=== PATIENT | male | born 1960 | race Hispanic/Latino ===

== ENCOUNTER 2022-03-04 09:53 | Observation (INO) | payer OTHER ==
--- OUTSIDE RECORDS SUMMARY | 2022-03-04 09:56 | XMS REPORT | Continuity of Care Document ---
:1960 Author Organization [facility] t Address [address] [place] [address] Care Team Providers Name Role Phone DAINA WOODS Primary Care Physician Unavailable KERRI SILVA Attending Clinician Unavailable HARJIT FLOYD Attending Clinician Unavailable Pob, [facility] Main Attending Clinician Unavailable Harjit Floyd MD Attending Clinician Doctor Unassigned, [place] Attending Clinician Unavailable DAINA WOODS Attending Clinician Unavailable DAINA WOODS Admitting Clinician Unavailable Payers Payer Name Policy Type Policy Number Effective Date Expiration Date S ource INDEMNITY/TRADITI [id number] [place] CHOICE - [employer] EN[employer]UST [id number] 2019 00:00:00 Problems Condition Condition Condition Status Onset Resolution Last Treating Co mments Source Name Details Category Date Date Treatment Clinician Date Overweight Overweight Disease Active U brandie (BMI (BMI 9-11 ity of 25.0-29.9) 25.0-29.9[place] [facility] Cardiac Cardiac Disease Active Univers risk risk 12-31 it[place] of [place] [facility] Dizzy Dizzy Disease Active Univers spells spells 11 ity of 00:: [place] [facility] Essential Essential Disease Active Uni vers hypertensi hypertensi 12-31 it y of on on 00:: [place] [facility] Dyslipidem Dyslipidem Disease Active U brandie ia ia - ity of 00:00: [place] [facility] Allergies, Adverse Reactions, Alerts Allergy Allergy Status Severity Reaction(s) Onset Inactive Treating Comm ents Source Name Type Date Date Clinician NO KNOWN Drug Active Univers ALLERGIE Class ity of S [facility] Social History Social Habit Start Date Stop Date Quantity Comments Source Exposure to Not sure [facility] SARS-CoV-2 [facility] (event) [place] Alcohol Comment 1-2 every 2-3 Univer sity of weeks [facility] Sex Assigned At Universit y of [facility] Alcohol intake 2014-12-31 2014-12-31 Current drinker Unive rsity of 00:00:00 00:00:00 of alcohol [place] [facility] (finding) Branch Smoking Status Start Date Stop Date Source Never smoker [facility] Medications Ordered Filled Start Stop Current Ordering Indication Dosage Frequency Signature Comments Components Source Medication Medication Date Date Medication? Clinician (SIG) Name Name traMADOL Yes 50mg Take 1 Univers (ULTRAM) 50 1-26 tablet by ity of mg tablet 00:00: mouth [place] 00 every 6 Medical (six) Branch hours as needed for Pain (scale 4-6). naproxen 2017- Yes 250mg Take 1 Univer s 250 mg 1-26 tablet by ity of tablet 00:00: mouth 2 00 (two) Medical times Branch daily with meals. traMADOL Yes 50mg Take 1 Univers (ULTRAM) 50 1-26 tablet by ity of mg tablet 00:00: mouth [place] 00 every 6 Medical (six) Branch hours as needed for Pain (scale 4-6). naproxen 2018- Yes 250mg Take 1 Univer s 250 mg 1-26 tablet by ity of tablet 00:00: mouth 2 [place] (two) Medical times Branch daily with meals. lisinopril Yes 10mg Take 10 mg U nivers (PRINIVIL,Z 9-11 by mouth ity of ESTRIL) 10 14:46: daily. [place] mg tablet 32 Medical Branch atorvastati Yes 10mg Take 10 mg Univers n (LIPITOR) 9-11 by mouth ity of 10 mg 14:46: at [place] tablet 32 bedtime. Medical Branch lisinopril Yes 10mg Take 10 mg U nivers (PRINIVIL,Z 9-11 by mouth ity of ESTRIL) 10 14:46: daily. [place] mg tablet 32 Medical Branch atorvastati Yes 10mg Take 10 mg Univers n (LIPITOR) 9-11 by mouth ity of 10 mg 14:46: at [place] tablet 32 bedtime. [facility] BIMATOPROST Yes 1[drp] Place 1 U nivers (LUMIGAN 9-11 Drop in ity of OPHTHALMIC) 14:12: each eye [place] 31 daily. [facility] BIMATOPROST Yes 1[drp] Place 1 U nivers (LUMIGAN 9-11 Drop in ity of OPHTHALMIC) 14:12: [place] eye [place] 31 daily. [facility] Procedures Procedure Date / Time Performed Performing Clinician [facility] e DASILVA VISUAL FIELD 2021-12-29 15:14:13 [facility] - BOTH EYES Medicine ASSIGNMENT OF BENEFITS 2020-04-18 15:46:58 Doctor Unassigned, No University [facility] Encounters Start End Encounter Admission Attending Care Care Encounter Source Date/Time Date/Time Type Type Clinicians Facility Department ID 2021-12-29 2021-12-29 Outpatient KERRI SILVA [facility] [id number] [facility] 14:25:27 16:31:03 [facility] 2021-04-26 2021-04-26 Outpatient KERRI SILVA [facility] [id number] [facility] 08:06:35 10:06:24 [facility] Medic[facility] e 2020-04-18 2020-04-18 Outpatient Devora FLOYD [facility] [id number] Univers 10:30:00 10:30:00 HARJIT [facility] 2020-04-18 2020-04-18 Therapy Assistant Ramesh Sepulveda Lab Main RUST [id number] Univers 09:47:56 10:02:56 Visit Harjit Floyd [id number] ity of [place] [id number] Camryn Mujica [id number] [place] [address] 2020-04-18 2020-04-18 Orders Doctor LUIS CARLOS [id number] Univers 00:00:00 00:00:00 Only Unassigned, ISAIAH [id number] [facility] [id number] Reza as [id number] [place] [address] Branch 2019-04-17 2019-04-17 Outpatient R PEGGY [facility] [id number] Univers 13:35:46 23:59:00 DAINA [facility] Results This patient has no known results.
[2022-03-04] MEDS ORDERED: NA CHLORIDE 0.9% 1,000 ML ONE (10:27)
[2022-03-04] MEDS ORDERED: ASPIRIN 81 MG CHEWABLE TABLET ONE ×2 (10:27→11:44)
[2022-03-04 10:47] LABS: Absolute Lymphocytes (CBC) 1.7 K/uL (0.7-4.9); Hematocrit 48.4 % (39.6-49.0); Lymphocytes % 29.9 % (15.3-44.8); MCV 87.6 fL (80-100); MPV 9.5 fL (7.6-11.3); RBC Red Blood Cell Count 5.52 M/uL (4.33-5.43)
--- NOTE | 2022-03-04 10:53 | RAD REPORT ---
EXAM DESCRIPTION: RAD - Chest Single View - 03/04/2022 10:34 am CLINICAL HISTORY: CHEST PAIN COMPARISON: Abdomen 1 View (KUB) dated 05/27/2017; Abdomen 1 View (KUB) dated 12/06/2015; ABDOMEN 1 VIE W KUB dated 11/06/2013 FINDINGS: Lines: None. Lungs: No evidence of edema or pneumonia. Pleural: No significant pleural effusions or pneumothorax. Cardiac: The heart size is within normal limits. Mediastinum: Within normal limits. Bones: No acute fractures. Other: None IMPRESSION: No acute cardiopulmonary disease.
[2022-03-04 11:04] LABS: Protime INR 0.98
[2022-03-04 11:06] LABS: Albumin 3.6 g/dL (3.4-5.0); Bilirubin Direct 0.1 mg/dL (0-0.2); Bilirubin Total 0.6 mg/dL (0.2-1.0); Magnesium 2.3 mg/dL (1.8-2.4); Potassium 3.8 mmol/L (3.5-5.1); Protein, Total 7.4 g/dL (6.4-8.2); Troponin High Sensitivity 5.8 pg/mL (<58.9)
--- NOTE | 2022-03-04 11:37 | RAD REPORT ---
EXAM DESCRIPTION: CTAngio Aorta For Dissection - 03/04/2022 11:23 am CLINICAL HISTORY: cp COMPARISON: No comparisons TECHNIQUE: CTA of the chest, abdomen, and pelvis was performed. MIP reconstructions were performed. IV contrast was administered. All CT scans are performed using dose optimization technique as appropriate and may include automated exposure control or mA/KV adjustment according to patient size. FINDINGS: Thorax: Chest Wall: Small bilateral thyroid nodules . Lungs: No acute abnormality. Pleura: No effusions or pneumothorax. Aparna/Mediastinum: No lymphadenopathy. Small hiatal hernia Aorta/Pulmonary Arteries: Unremarkable Heart: Normal size. Abdomen/Pelvis: Liver: Multiple low-density liver lesions are noted which have benign imaging features. Biliary: No biliary ductal dilatation. Stomach: No significant focal abnormality. Duodenum: No significant focal abnormality. Pancreas: No significant abnormality. Spleen: No significant abnormality. Adrenal: No suspicious lesions. Kidney/ureter: No hydronephrosis. No renal calculi. Retroperitoneum: No retroperitoneal adenopathy. Vascular: No aneurysm. Bowel: No significant focal abnormality. Diverticulosis. Normal appendix. Peritoneum: No ascites or free air. Fat containing inguinal hernias. Bladder: Grossly unremarkable. Reproductive: No adnexal masses. Bones: No acute fracture. Grade 1 anterolisthesis of L4 on L5 Other: n/a IMPRESSION: No evidence of aortic aneurysm, aortic dissection, or pulmonary embolus. No acute findin gs are present within the chest, abdomen, or pelvis.
--- NOTE | 2022-03-04 11:41 | EDPHYS ---
Physician Documentation [facility] Name: Davie Jung Jr Age: 61 yrs Sex: Male : 1960 Arrival Date: 03/04/2022 Time: 09:54 Bed 5 Private MD: ED Physician Abimael Glynn HPI: 03/04 11:33 This 61 yrs old Male presents to ER via Ambulatory with complaints of Chest sary Pain - onset yesterday am, Back Pain, High Blood Pressure. Historical: - Allergies: 10:03 No Known Allergies; ss - Home Meds: 10:04 Lisinopril Oral [Active]; bisoprolol-hydrochlorothiazide oral [Active]; atorvastatin vg1 oral [Active]; pantoprazole oral [Active]; - PMHx: 10:04 Hypertensive disorder; Hypercholesterolemia; vg1 - Immunization history:: Client reports receiving the 2nd dose of the Covid vaccine. - Social history:: Smoking status: Patient denies any tobacco usage or history of. ROS: 11:36 Constitutional: Negative for fever, chills, and weight loss, Eyes: Negative for injury, sary pain, redness, and discharge, ENT: Negative for injury, pain, and discharge, Neck: Negative for injury, pain, and swelling, Respiratory: Negative for shortness of breath, cough, wheezing, and pleuritic chest pain, Abdomen/GI: Negative for abdominal pain, nausea, vomiting, diarrhea, and constipation, Back: Negative for injury and pain, : Negative for injury, bleeding, discharge, and swelling, MS/Extremity: Negative for injury and deformity, Skin: Negative for injury, rash, and discoloration, Neuro: Negative for headache, weakness, numbness, tingling, and seizure, Psych: Negative for depression, anxiety, suicide ideation, homicidal ideation, and hallucinations, Allergy/Immunology: Negative for hives, rash, and allergies, Endocrine: Negative for neck swelling, polydipsia, polyuria, polyphagia, and marked weight changes, Hematologic/Lymphatic: Negative for swollen nodes, abnormal bleeding, and unusual bruising. 11:36 Cardiovascular: Positive for chest pain, of the chest. Exam: 11:36 Constitutional: This is a well developed, well nourished patient who is awake, alert, sary and in no acute distress. Head/Face: Normocephalic, atraumatic. Eyes: Pupils equal round and reactive to light, extra-ocular motions intact. Lids and lashes normal. Conjunctiva and sclera are non-icteric and not injected. Cornea within normal limits. Periorbital areas with no swelling, redness, or edema. ENT: Nares patent. No nasal discharge, no septal abnormalities noted. Tympanic membranes are normal and external auditory canals are clear. Oropharynx with no redness, swelling, or masses, exudates, or evidence of obstruction, uvula midline. Mucous membranes moist. Neck: Trachea midline, no thyromegaly or masses palpated, and no cervical lymphadenopathy. Supple, full range of motion without nuchal rigidity, or vertebral point tenderness. No Meningismus. Chest/axilla: Normal chest wall appearance and motion. Nontender with no deformity. No lesions are appreciated. Cardiovascular: Regular rate and rhythm with a normal S1 and S2. No gallops, murmurs, or rubs. Normal PMI, no JVD. No pulse deficits. Respiratory: Lungs have equal breath sounds bilaterally, clear to auscultation and percussion. No rales, rhonchi or wheezes noted. No increased work of breathing, no retractions or nasal flaring. Abdomen/GI: Soft, non-tender, with normal bowel sounds. No distension or tympany. No guarding or rebound. No evidence of tenderness throughout. Back: No spinal tenderness. No costovertebral tenderness. Full range of motion. Male : Normal genitalia with no discharge or lesions. Skin: Warm, dry with normal turgor. Normal color with no rashes, no lesions, and no evidence of cellulitis. MS/ Extremity: Pulses equal, no cyanosis. Neurovascular intact. Full, normal range of motion. Neuro: Awake and alert, GCS 15, oriented to person, place, time, and situation. Cranial nerves II-XII grossly intact. Motor strength 5/5 in all extremities. Sensory grossly intact. Cerebellar exam normal. Normal gait. Psych: Awake, alert, with orientation to person, place and time. Behavior, mood, and affect are within normal limits. 11:36 ECG was reviewed by the Attending Physician. Vital Signs: 10:01 BP 165 / 93; Pulse 70; Resp 16; Temp 98.3(O); Pulse Ox 100% on R/A; Weight 96.62 kg; ss Height 5 ft. 9 in. (175.26 cm); Pain 8/10; 11:38 BP 158 / 79; Pulse 73; Resp 16; Pulse Ox 100% ; ll1 15:10 BP 163 / 91; Pulse 62; ll1 16:36 BP 154 / 78; Pulse 61; Resp 18; Pulse Ox 97% ; ss 10:01 Body Mass Index 31.45 (96.62 kg, 175.26 cm) MDM: 10:07 Patient medically screened. sary 11:37 Differential diagnosis: abnormal EKG, acute myocardial infarction, acute pericarditis, sary coronary artery disease congestive heart failure gastroesophageal reflux disease (GERD), hiatal hernia, pancreatitis, pericarditis, pneumonia, pulmonary embolus, stable angina, thoracic aortic disection, unstable angina. HEART Score: History: Slightly Suspicious (0), ECG: Normal (0), Age: > 45 and < 65 years (1), Risk Factors: > or = 3 Risk factors for atherosclerotic disease (2), [Hypercholesterolemia] [Hypertension] [+ Family HX] [Obesity] Troponin: < or = 1 x Normal Limit (0). The patient was given aspirin in the Emergency Department. The patient's deep vein thrombosis risk score was calculated as follows: Total Score: 0. This patient was found to be at low risk for a deep vein thrombosis by using the Well's assessment criteria. The patient's pulmonary embolism risk score was calculated as follows: Total Score: 0-2 points. This patient was found to be at low risk for a pulmonary embolism by using the Well's assessment criteria. RONNI Risk Score: 1 - Three or more CAD risk factors, [Family Hx], [HTN], [Elevated Cholesterol], TOTAL SCORE =. Data reviewed: vital signs, nurses notes, lab test result(s), EKG, radiologic studies, CT scan, plain films. Data interpreted: monitoring manager: rate is 70 beats/min, rhythm is normal sinus rhythm, regular, Pulse oximetry: on room air is 73 %. Test interpretation: by ED physician or midlevel provider: ECG, plain radiologic studies. Counseling: I had a detailed discussion with the patient and/or guardian regarding: the historical points, exam findings, and any diagnostic results supporting the discharge/admit diagnosis, lab results, radiology results, the need for further work-up and treatment in the hospital. 03/04 10:09 Order name: Basic Metabolic Panel; Complete Time: 11:17 sary 03/04 10:09 Order name: CBC with Diff; Complete Time: 11:17 sary 03/04 10:09 Order name: LFT's; Complete Time: 11:17 sary 03/04 10:09 Order name: Magnesium; Complete Time: 11:17 sary 03/04 10:09 Order name: NT PRO-BNP; Complete Time: 11:17 sary 03/04 10:09 Order name: PT-INR; Complete Time: 11:17 sary 03/04 10:09 Order name: Troponin HS; Complete Time: 11:17 sary 03/04 10:09 Order name: Lipase; Complete Time: 11:17 [facility] 03/04 12:05 Order name: CBC with Automated Diff EDMS 03/04 12:05 Order name: CBC with Automated Diff EDMS 03/04 12:05 Order name: Comprehensive Metabolic Panel EDMS 03/04 12:05 Order name: Comprehensive Metabolic Panel EDMS 03/04 12:05 Order name: Lipid Profile EDMS 03/04 10:09 Order name: XRAY Chest (1 view); Complete Time: 11:17 [facility] 03/04 10:18 Order name: CT Aorta for Dissection; Complete Time: 11:39 [facility] 03/04 12:05 Order name: Lipid Profile EDMS 03/04 12:05 Order name: Magnesium EDMS 03/04 12:05 Order name: Magnesium EDMS 03/04 12:05 Order name: Phosphorus EDMS 03/04 12:05 Order name: Phosphorus EDMS 03/04 12:05 Order name: Protime (+INR) EDMS 03/04 12:05 Order name: Protime (+INR) EDMS 03/04 12:05 Order name: PTT, Activated Partial Thromb EDMS 03/04 12:05 Order name: PTT, Activated Partial Thromb EDMS 03/04 12:05 Order name: Troponin High Sensitivity EDMS 03/04 12:05 Order name: Troponin High Sensitivity; Complete Time: 19:38 EDMS 03/04 12:05 Order name: Troponin High Sensitivity EDMS 03/04 15:16 Order name: SARS RAPID eb 03/04 15:51 Order name: SARS-COV-2 Antigen Rapid; Complete Time: 19:38 EDMS 03/04 10:09 Order name: EKG; Complete Time: 10: [facility] 03/04 10:09 Order name: Cardiac monitoring; Complete Time: 10: [facility] 03/04 10:09 Order name: EKG - Nurse/Tech; Complete Time: 10: [facility] 03/04 10:09 Order name: IV Saline Lock; Complete Time: 10: [facility] 03/04 10:09 Order name: Labs collected and sent; Complete Time: 10: [facility] 03/04 10:09 Order name: O2 Per Protocol; Complete Time: 10: [facility] 03/04 10:09 Order name: O2 Sat Monitoring; Complete Time: 10: [facility] 03/04 12:05 Order name: CONS Physician Consult [facility] 03/04 12:05 Order name: Heart Healthy [facility] 03/04 12:05 Order name: EKG Electrocardiogram [facility] 03/04 12:05 Order name: EKG Electrocardiogram [facility] 03/04 12:05 Order name: EKG Electrocardiogram [facility] EC:36 Rate is 71 beats/min. Rhythm is regular. QRS [place] is Normal. [place] interval is normal. QRS sary interval is normal. QT interval is normal. No Q waves. T waves are Normal. No ST changes noted. Clinical impression: Normal ECG and No evidence of ischemia. Interpreted by me. Reviewed by me. Administered Medications: 10:31 Drug: NS 0.9% 1000 ml Route: IV; Rate: 125 ml/hr; Site: right antecubital; ll1 17:53 Follow up: Response: No adverse reaction; IV Status: Completed infusion; IV Intake: ll1 1000ml 10:31 Drug: Aspirin 81 mg Route: PO; ll1 12:13 Follow up: Response: No adverse reaction ll1 12:12 Drug: Lipitor (atorvastatin) 40 mg Route: PO; ll1 15:32 Follow up: Response: No adverse reaction ll1 12:13 Drug: Pepcid (famotidine) 20 mg Route: IVP; Site: right antecubital; ll1 15:33 Follow up: Response: No adverse reaction ll1 12:13 Drug: Lovenox (enoxaparin) 1 mg/kg Route: Sub-Q; Site: right lower abdomen; ll1 15:33 Follow up: Response: No adverse reaction ll1 12:13 Drug: Aspirin 81 mg Route: PO; ll1 15:33 Follow up: Response: No adverse reaction ll1 12:13 Drug: Lopressor (metoprolol TARTRATE)) 25 mg Route: PO; ll1 15:32 Follow up: Response: No adverse reaction ll1 Disposition Summary: 03/04/22 11:41 Hospitalization Ordered Hospitalization Status: Observation sary Provider: Tashi Chance cha Condition: Stable sary Problem: new sary Symptoms: have improved sary Bed/Room Type: Standard sary Location: [facility] ER HOLD(03/04/22 16:28) Room Assignment: ERHOLD-(03/04/22 16:28) Diagnosis - Chest pain, unspecified sary - Unstable angina sary - Essential (primary) hypertension sary Forms: - Medication Reconciliation Form sary - SBAR form sary Signatures: Dispatcher [employer] EDMS Abimael Glynn MD MD cha Smirch, Shelby, RN RN ss Toi [place], [employer]ARM[employer]ER-C [employer] FARMWORKER-Cla1 Lydia Hayes RN RN vg1 Maco Fan RN RN ll1 Corrections: (The following items were deleted from the chart) 12:05 11:41 LIPID PROFILE+C.LAB.BRZ ordered. EDOH EDOH 16:28 11:41 Telemetry/MedSurg (observation) sary 16:28 11:41 sary ss
--- NOTE | 2022-03-04 11:41 | ER ---
Nurse's Notes [facility] Name: Davie Jung Jr Age: 61 yrs Sex: Male : 1960 Arrival Date: 03/04/2022 Time: 09:54 Bed 5 Private MD: Diagnosis: Chest pain, unspecified;Unstable angina;Essential (primary) hypertension Presentation: 03/04 10:01 Chief complaint: Patient states: CP began during the week, yesterday pain began to ss radiate to back; states headache. Denies SOB and N/V. Coronavirus screen: Vaccine status: Patient reports receiving the 2nd dose of the covid vaccine. Client denies travel out of the [place] in the last 14 days. Ebola Screen: Patient negative for fever greater than or equal to 101.5 degrees Fahrenheit, and additional compatible Ebola Virus Disease symptoms. Initial Sepsis Screen: Does the patient meet any 2 criteria? No. Patient's initial sepsis screen is negative. Does the patient have a suspected source of infection? No. Patient's initial sepsis screen is negative. Risk Assessment: Do you want to hurt yourself or someone else? Patient reports no desire to harm self or others. Onset of symptoms was February 28, 2022. 10:01 Method Of Arrival: Ambulatory ss 10:01 Acuity: ELENA 2 ss Triage Assessment: 10:04 General: Appears uncomfortable, Behavior is calm, cooperative. Pain: Complains of pain vg1 in chest Pain radiates to back Pain currently is 8 out of 10 on a pain scale. Pain began 2-3 days ago. Neuro: Level of Consciousness is awake, alert, obeys commands, Oriented to person, place, time, situation, Reports headache. Cardiovascular: Patient's skin is warm and dry. GI: Patient currently denies nausea, vomiting. Historical: - Allergies: 10:03 No Known Allergies; ss - Home Meds: 10:04 Lisinopril Oral [Active]; bisoprolol-hydrochlorothiazide oral [Active]; atorvastatin vg1 oral [Active]; pantoprazole oral [Active]; - PMHx: 10:04 Hypertensive disorder; Hypercholesterolemia; vg1 - Immunization history:: Client reports receiving the 2nd dose of the Covid vaccine. - Social history:: Smoking status: Patient denies any tobacco usage or history of. Screenin:24 Abuse screen: Denies threats or abuse. Nutritional screening: No deficits noted. Tuberculosis screening: No symptoms or risk factors identified. Fall Risk IV access (20 points). Total Beavers Fall Scale indicates No Risk (0-24 pts). Assessment: 10:31 Reassessment: No changes from previously documented assessment. Patient and/or family ll1 updated on plan of care and expected duration. Pain level reassessed. Patient is alert, oriented x 3, equal unlabored respirations, skin warm/dry/pink. 11:30 Reassessment: No changes from previously documented assessment. Patient and/or family ll1 updated on plan of care and expected duration. Pain level reassessed. Patient is alert, oriented x 3, equal unlabored respirations, skin warm/dry/pink. back from CT. 12:20 Reassessment: No changes from previously documented assessment. Patient and/or family ll1 updated on plan of care and expected duration. Pain level reassessed. Patient is alert, oriented x 3, equal unlabored respirations, skin warm/dry/pink. 13:15 Reassessment: No changes from previously documented assessment. Patient and/or family ll1 updated on plan of care and expected duration. Pain level reassessed. Patient is alert, oriented x 3, equal unlabored respirations, skin warm/dry/pink. 14:15 Reassessment: No changes from previously documented assessment. Patient and/or family ll1 updated on plan of care and expected duration. Pain level reassessed. Vital Signs: 10:01 BP 165 / 93; Pulse 70; Resp 16; Temp 98.3(O); Pulse Ox 100% on R/A; Weight 96.62 kg; Height 5 ft. 9 in. (175.26 cm); Pain 8/10; 11:38 BP 158 / 79; Pulse 73; Resp 16; Pulse Ox 100% ; ll1 15:10 BP 163 / 91; Pulse 62; ll1 16:36 BP 154 / 78; Pulse 61; Resp 18; Pulse Ox 97% ; ss 10:01 Body Mass Index 31.45 (96.62 kg, 175.26 cm) ED Course: 09:54 Patient arrived in ED. am2 10:03 Triage completed. 10:04 Arm band placed on. vg1 10:06 Abimael Glynn MD is Attending Physician. sary 10:10 Maco Fan RN is Primary Nurse. ll1 10:20 Inserted saline lock: 22 gauge in right antecubital area, using aseptic technique. ss Blood collected. Patient maintains SpO2 saturation greater than 95% on room air. 10:24 Patient has correct armband on for positive identification. Bed in low position. Call ss light in reach. Side rails up X2. Client placed on continuous cardiac and pulse oximetry monitoring. NIBP monitoring applied. radiation monitor on. 10:36 XRAY Chest (1 view) In Process Unspecified. EDMS 11:25 CT Aorta for Dissection In Process Unspecified. EDMS 11:40 Tashi Chance MD is Hospitalizing Provider. sary 17:53 No provider procedures requiring assistance completed. Patient admitted, IV remains in ll1 place. Administered Medications: 10:31 Drug: NS 0.9% 1000 ml Route: IV; Rate: 125 ml/hr; Site: right antecubital; ll1 17:53 Follow up: Response: No adverse reaction; IV Status: Completed infusion; IV Intake: ll1 1000ml 10:31 Drug: Aspirin 81 mg Route: PO; ll1 12:13 Follow up: Response: No adverse reaction ll1 12:12 Drug: Lipitor (atorvastatin) 40 mg Route: PO; ll1 15:32 Follow up: Response: No adverse reaction ll1 12:13 Drug: Pepcid (famotidine) 20 mg Route: IVP; Site: right antecubital; ll1 15:33 Follow up: Response: No adverse reaction ll1 12:13 Drug: Lovenox (enoxaparin) 1 mg/kg Route: Sub-Q; Site: right lower abdomen; ll1 15:33 Follow up: Response: No adverse reaction ll1 12:13 Drug: Aspirin 81 mg Route: PO; ll1 15:33 Follow up: Response: No adverse reaction ll1 12:13 Drug: Lopressor (metoprolol TARTRATE)) 25 mg Route: PO; ll1 15:32 Follow up: Response: No adverse reaction ll1 Medication: 10:24 VIS not applicable for this client. ss Intake: 17:53 IV: 1000ml; Total: 1000ml. ll1 Outcome: 11:41 Decision to Hospitalize by Provider. sary 17:53 Admitted to ER Hold. Please see [facility] for further documentation. ll1 17:53 Condition: stable 17:53 Instructed on the need for admit. 20:32 Patient left the ED. vc1 Signatures: Dispatcher [employer] EDAbimael Ramirez MD MD cha Smirch, Shelby RN RN Glenis Mathis Victoria, RN RN vg1 Maco Fan RN RN ll1 Debbie Segura RN RN vc1
[2022-03-04] MEDS ORDERED: ATORVASTATIN 20 MG TAB ONE (11:44)
[2022-03-04] MEDS ORDERED: METOPROLOL TAR 25 MG TAB ONE (11:44)
[2022-03-04] MEDS ORDERED: ENOXAPARIN 100 MG/ML SYR SQ ONE (11:45)
[2022-03-04] MEDS ORDERED: FAMOTIDINE 20 MG/2 ML VIAL IV ONE (11:45)
--- NOTE | 2022-03-04 12:12 | P.HP ---
Certification for Inpatient Patient admitted to: Observation With expected LOS: <2 Midnights Practitioner: I am a practitioner with admitting privileges, knowledge of patient current condition, hospital course, and medical plan of care. Services: Services provided to patient in accordance with Admission requirements found in Title 42 Section 412.3 of the Code of Federal Regulations Patient History Date of Service: 03/04/22 Primary Care Provider: Dr. Shen Reason for admission: Chest pain History of Present Illness: Mr. Jung is a 61yo male with a hx of HTN, and Hyperlipidemia who presented to the [facility] ED for c/o chest pain that is intermittent over the past 24 hours. Pt describes pain as indigestion, denies diaphoresis, nausea, weakness. Pt has not taken his prescribed medication to treat HTN or lipids as he has been feeling well. He will be admitted for serial enzymes and cardiology consult. Allergies No Known Allergies Allergy (Unverified 03/04/22 10:16) Home medications list reviewed: Yes (pt is not currently taking his medications) Home Medications: Lisinopril [Zestril] 1 tab PO DAILY 03/04/22 Pantoprazole Sodium [Protonix] 20 mg PO 03/04/22 bisoproloL fumarate [Zebeta*] 1 tab PO 03/04/22 - Past Medical/Surgical History Has patient received pneumonia vaccine in the past: No Diabetic: No -: hypertension -: hyperlipidemia Past Surgical History: (Left Elbow surgery) - Family History Mother -: Heart disease, Hypertension Father -: Heart disease - Social History Smoking Status: Never smoker Alcohol use: No CD- Drugs: No Caffeine use: No Place of Residence: Home (Pt is and lives at home) Review of Systems General: Unremarkable Eyes: Unremarkable ENT: Unremarkable Respiratory: Unremarkable Cardiovascular: Chest Pain Gastrointestinal: Unremarkable Genitourinary: Unremarkable Musculoskeletal: Back Pain Integumentary: Unremarkable Neurological: Unremarkable Lymphatics: Unremarkable Physical Examination - Vital Signs Blood Pressure: 158/79 Pulse: 21 Respirations: 22 Pulse Ox (%): 100 - Physical Exam General: Alert, In no apparent distress, Oriented x3, Disheveled HEENT: Atraumatic Neck: 2+ carotid pulse no bruit Respiratory: Clear to auscultation bilaterally Cardiovascular: No edema, Normal pulses, Regular rate/rhythm Capillary refill: <2 Seconds Gastrointestinal: Normal bowel sounds, Soft and benign Musculoskeletal: No clubbing, No swelling Integumentary: No rashes Neurological: Normal gait, Normal speech, Normal strength at 5/5 x4 extr - Studies Laboratory Data (last 24 hrs) 03/04/22 11:41: Triglycerides Cancelled, Cholesterol Cancelled, HDL Cholesterol Cancelled, Cholesterol/HDL Ratio Cancelled 03/04/22 10:20: PT 10.8, INR 0.98 03/04/22 10:20: WBC 5.70, Hgb 16.9, Hct 48.4, Plt Count 222 03/04/22 10:20: Sodium 139, Potassium 3.8, BUN 16, Creatinine 0.88, Glucose 101, Magnesium 2.3, Total Bilirubin 0.6, AST 13 L, ALT 29, Alkaline Phosphatase 87, Lipase 96 Assessment and Plan - Problems (Diagnosis) (1) Chest pain Current Visit: Yes Status: Acute Plan: serial enzymes, repeat EKG, cardiology consult Discharge Plan: Home Plan to discharge in: 24 Hours - Advance Directives Does patient have a Living Will: No Does patient have a Durable POA for Healthcare: No Critical Care: No Time Spent Managing Pts Care (In Minutes): 70
[2022-03-04 15:50] LABS: SARS-CoV-2 Antigen Rapid Res Negative (Negative)
[2022-03-04 15:59] VITALS: BMI 31.4
[2022-03-04 16:34] VITALS: BP 154/78; TEMP 98
--- NOTE | 2022-03-04 20:14 | P.DS ---
Admission Date: 03/04/22 Discharge Date: 03/04/22 Primary Care Provider: Dr. Shen Disposition: ROUTINE DISCHARGE Discharge Condition: GOOD Reason for Admission: Chest pain Consultations: Cardiology Dr. Rios Procedures: CXR 03/04/22 FINDINGS: Lines: None. Lungs: No evidence of edema or pneumonia. Pleural: No significant pleural effusions or pneumothorax. Cardiac: The heart size is within normal limits. Mediastinum: Within normal limits. Bones: No acute fractures. Other: None IMPRESSION: No acute cardiopulmonary disease. CT dissection protocol 03/04/22 TECHNIQUE: CTA of the chest, abdomen, and pelvis was performed. MIP reconstructions were performed. IV contrast was administered. All CT scans are performed using dose optimization technique as appropriate and may include automated exposure control or mA/KV adjustment according to patient size. FINDINGS: Thorax: Chest Wall: Small bilateral thyroid nodules . Lungs: No acute abnormality. Pleura: No effusions or pneumothorax. Aparna/Mediastinum: No lymphadenopathy. Small hiatal hernia Aorta/Pulmonary Arteries: Unremarkable Heart: Normal size. Abdomen/Pelvis: Liver: Multiple low-density liver lesions are noted which have benign imaging features. Biliary: No biliary ductal dilatation. Stomach: No significant focal abnormality. Duodenum: No significant focal abnormality. Pancreas: No significant abnormality. Spleen: No significant abnormality. Adrenal: No suspicious lesions. Kidney/ureter: No hydronephrosis. No renal calculi. Retroperitoneum: No retroperitoneal adenopathy. Vascular: No aneurysm. Bowel: No significant focal abnormality. Diverticulosis. Normal appendix. Peritoneum: No ascites or free air. Fat containing inguinal hernias. Bladder: Grossly unremarkable. Reproductive: No adnexal masses. Bones: No acute fracture. Grade 1 anterolisthesis of L4 on L5 Other: n/a IMPRESSION: No evidence of aortic aneurysm, aortic dissection, or pulmonary embolus. No acute findings are present within the chest, abdomen, or pelvis. Brief History of Present Illness: Mr. Jung is a 61yo male with a hx of HTN, and Hyperlipidemia who presented to the [facility] ED for c/o chest pain that is intermittent over the past 24 hours. Pt describes pain as indigestion, denies diaphoresis, nausea, weakness. Pt has not taken his prescribed medication to treat HTN or lipids as he has been feeling well. He will be admitted for serial enzymes and cardiology consult. Hospital Course: Troponins trended negative, patient was seen and examined by cardiology who recommends outpatient stress test. It is felt the patient symptoms are more related to GERD than ACS. Patient reports he was only intermittently taking the Protonix he was prescribed at home. He was given refills for his blood pressure medication, cholesterol medication, Protonix and instructed to follow-up with cardiology for outpatient stress test, GI, his primary care doctor for further adjustment and management of his medications. Patient is chest pain-free at this time feeling much better verbalized understanding to plan prescription sent to pharmacy. Vital Signs/Physical Exam: Temp Pulse Resp BP Pulse Ox 98.0 F 58 16 154/78 H 98 03/04/22 16:00 03/04/22 16:00 03/04/22 16:00 03/04/22 16:00 03/04/22 16:00 General: Alert, In no apparent distress, Oriented x3 HEENT: Atraumatic, PERRLA, EOMI Neck: Supple, JVD not distended Respiratory: Clear to auscultation bilaterally, Normal air movement Cardiovascular: Regular rate/rhythm, Normal S1 S2 Gastrointestinal: Normal bowel sounds, No tenderness Musculoskeletal: No tenderness Integumentary: No rashes Neurological: Normal speech, Normal tone, Normal affect Lymphatics: No axilla or inguinal lymphadenopathy Laboratory Data at Discharge: WBC 5.70 K/uL (4.3-10.9) 03/04/22 10:20 Hgb 16.9 g/dL (13.6-17.9) 03/04/22 10:20 Hct 48.4 % (39.6-49.0) 03/04/22 10:20 Plt Count 222 K/uL (152-406) 03/04/22 10:20 PT 10.8 SECONDS (9.5-12.5) 03/04/22 10:20 INR 0.98 03/04/22 10:20 Sodium 139 mmol/L (136-145) 03/04/22 10:20 Potassium 3.8 mmol/L (3.5-5.1) 03/04/22 10:20 BUN 16 mg/dL (7-18) 03/04/22 10:20 Creatinine 0.88 mg/dL (0.55-1.3) 03/04/22 10:20 Glucose 101 mg/dL (74-106) 03/04/22 10:20 Magnesium 2.3 mg/dL (1.8-2.4) 03/04/22 10:20 Total Bilirubin 0.6 mg/dL (0.2-1.0) 03/04/22 10:20 AST 13 U/L (15-37) L 03/04/22 10:20 ALT 29 U/L (12-78) 03/04/22 10:20 Alkaline Phosphatase 87 U/L (45-117) 03/04/22 10:20 Triglycerides Cancelled 03/04/22 11:41 Cholesterol Cancelled 03/04/22 11:41 HDL Cholesterol Cancelled 03/04/22 11:41 Cholesterol/HDL Ratio Cancelled 03/04/22 11:41 Lipase 96 U/L (73-393) 03/04/22 10:20 Home Medications: Atorvastatin Calcium [Lipitor*] 10 mg PO BEDTIME #30 tab 03/04/22 Lisinopril [Zestril] 1 tab PO DAILY #30 tab 03/04/22 Pantoprazole Sodium [Protonix] 20 mg PO DAILY 03/04/22 Pantoprazole Sodium [Protonix] 40 mg PO DAILY #30 tab 03/04/22 New Medications: Atorvastatin Calcium [Lipitor*] 10 mg PO BEDTIME #30 tab Pantoprazole Sodium [Protonix] 40 mg PO DAILY #30 tab Lisinopril [Zestril] 1 tab PO DAILY #30 tab Diet: ADA Activity: Ad mehdi Followup: Elizabeth Shen MD [Primary Care Provider] - Dominic Rios MD [ACTIVE - CAN ADMIT] - 2-3 Days Time spent managing pt's care (in minutes): 20
[2022-03-04 20:42] VITALS: O2SAT 97
[2022-03-04] MEDS ORDERED: PANTOPRAZOLE 40MG TABLET PO SCH (21:00)
[2022-03-04 22:59] LABS: Urine Blood Negative (Negative); Urine Glucose 3+ (Negative); Urine Protein 1+ (Negative); Urine Specific Gravity 1.025 (1.005-1.030)
[2022-03-05] MEDS ORDERED: ENOXAPARIN 40 MG/0.4 ML SQ SCH (09:00)
[2022-03-05] MEDS ORDERED: ASPIRIN 81 MG CHEWABLE TABLET PO SCH (09:00)
--- NOTE | 2022-03-05 15:09 | EKG ---
Test Date: 2022-03-04 Test Time: 10:10:30 Millinery Worker: MEASUREMENT RESULTS: Intervals: Rate: 71 VA: 166 QRSD: 92 QT: 378 QTc: 410 [place]: P: 21 VA: 166 QRS: 8 T: 10 INTERPRETIVE STATEMENTS: Normal sinus rhythm Normal ECG No previous ECG available for comparison Electronically Signed On 03-05-22 15:07:48 FARMWORKER ANIMAL by Dominic Rios
--- NOTE | 2022-03-05 15:42 | CON ---
Date of Consultation: 03/04/2022 Reason For Consultation: Chest pain. History Of Present Illness: A 61-year-old male with history of hypertension, dyslipidemia, presented with chest pain that is on and off for the past 24 hours, not related to exertion and no ra diation. No shortness of breath. No nausea, vomiting, diarrhea. The patient has no chest pain at t he time of evaluation. Past Medical History: Hypertension, dyslipidemia. Medications: Refer to reconciliation sheet for detailed list. Allergies: NO KNOWN DRUG ALLERGIES. Family History: No premature coronary artery disease or cancer. Social History: Does not smoke or drink. Does not use any drugs. Review of Systems: All systems reviewed and they were negative. Physical Examination: Vital Signs: Reviewed. Head and Neck: Pupils are equal, reactive to light. Intact eye movements. No JVD. No cervical lym phadenopathy. Neck is supple. Thyroid is not enlarged. Lungs: Clear to auscultation bilaterally. No rhonchi, wheezing, or crackles. No accessory muscle u se. Heart: Regular rate and rhythm. No extra sounds. Abdomen: Soft, nontender. Bowel sounds positive. No organomegaly. No masses or hernia. No rigidi ty or rebound. Extremities: No edema, clubbing, or cyanosis. Intact pulses. Skin: No rash. Neurologic: Alert, awake, oriented x3. No acute focal deficits appreciated. Investigations: Two cardiac enzymes are negative. BUN 16, creatinine 0.88, and hemoglobin is 16.9. Assessment And Plan: 1.Chest pain, not typical; however, he has risk factors. Cardiac enzymes are negative and no acute EKG changes. The patient can be released from Cardiology standpoint and outpatient stress test and a n echo to be planned. The patient agreed to the plan. 2.Hypertension. Blood pressure is elevated. Resume home medications and adjust further as needed. SR/MODL Voice ID: [id number] Report ID: [id number]
== END 2022-03-04 20:27 | disposition home or self-care (01) ==
LOC: ER 09:53 → ERHOLD 11:51
PROVIDERS: ADMIT Hospitalist; ATTEND Hospitalist
DX: R07.9 Chest pain, unspecified (principal); I10 Essential (primary) hypertension; E78.5 Hyperlipidemia, unspecified; Z82.49 Family history of ischemic heart disease and other diseases of the circulatory system; Z20.822 Contact with and (suspected) exposure to COVID-19
CPT/HCPCS: 96361; 93005; 85025; 80048; 36415; 83735; 85610; 80076; 81003; 84484 ×2; 83690; 83880; 71275; 74175; 71045; 96372; 96374; 99285; 87811; Q9967; J1650; J7030; G0378 ×2

== ENCOUNTER 2022-11-27 08:16 | Emergency (ER) | payer OTHER ==
--- OUTSIDE RECORDS SUMMARY | 2022-11-27 08:20 | XMS REPORT | Continuity of Care Document ---
:1960 Author Organization [facility] t Address [address] [facility] [address] [place] [id number] Care Team Providers Name Role Phone DAINA WOODS Primary Care Physician Unavailable HARJIT FLOYD Attending Clinician Unavailable Pob, [facility] Main Attending Clinician Unavailable Harjit Floyd MD Attending Clinician Doctor Unassigned, [place] Attending Clinician Unavailable DAINA WOODS Attending Clinician Unavailable DAINA WOODS Admitting Clinician Unavailable Payers Payer Name Policy Type Policy Number Effective Date Expiration Date S [place] [employer]TRUST [id number] 2019 00:00:00 Problems Condition Condition Condition Status Onset Resolution Last Treating Co mments Source Name Details Category Date Date Treatment Clinician Date Overweight Overweight Disease Active U brandie (BMI (BMI 12-31 ity of 25.0-29.9) 25.0-29.9) 00:00: [facility] Cardiac Cardiac Disease Active Univers risk risk 12-31 ity of counseling counseling 00:00: [facility] Dizzy Dizzy Disease Active Univers spells spells 12-31 ity of 00:: [place] [facility] Essential Essential Disease Active Uni vers hypertensi hypertensi 12-31 it y of on on 00:: [place] [facility] Dyslipidem Dyslipidem Disease Active U nivers ia ia 12-31 ity of 00:00: [place] [facility] Allergies, Adverse Reactions, Alerts Allergy Allergy Status Severity Reaction(s) Onset Inactive Treating Comm ents Source Name Type Date Date Clinician NO KNOWN Drug Active Univers ALLERGIE Class ity of S [facility] Social History Social Habit Start Date Stop Date Quantity Comments Source Exposure to Not sure [facility] SARS-CoV-2 [place] [facility] (event) Branch Alcohol Comment 1-2 every 2-3 Univer sity of weeks [facility] Sex Assigned At Universit y of [facility] Branch Alcohol intake 2014-12-31 2014-12-31 Current drinker Unive rsity of 00:00:00 00:00:00 of alcohol [place] [facility] (finding) Branch Smoking Status Start Date Stop Date Source Never smoker [facility] Medications Ordered Filled Start Stop Current Ordering Indication Dosage Frequency Signature Comments Components Source Medication Medication Date Date Medication? Clinician (SIG) Name Name traMADOL Yes 50mg Take 1 Univers (ULTRAM) 50 1-26 tablet by ity of mg tablet 00:00: mouth [place] 00 every 6 Medical (six) Branch hours as needed for Pain (scale 4-6). naproxen Yes 250mg Take 1 Univer s 250 mg 1-26 tablet by ity of tablet 00:00: mouth 2 [place] (two) Medical times Branch daily with meals. traMADOL Yes 50mg Take 1 Univers (ULTRAM) 50 1-26 tablet by ity of mg tablet 00:00: mouth [place] 00 every 6 Medical (six) Branch hours as needed for Pain (scale 4-6). naproxen Yes 250mg Take 1 Univer s 250 mg 1-26 tablet by ity of tablet 00:00: mouth 2 [place] 00 (two) Medical times Branch daily with meals. lisinopril Yes 10mg Take 10 mg U nivers (PRINIVIL,Z 9-11 by mouth ity of ESTRIL) 10 14:46: daily. [place] mg tablet 32 Medical Branch atorvastati Yes 10mg Take 10 mg Univers n (LIPITOR) 9-11 by mouth ity of 10 mg 14:46: at [place] tablet 32 bedtime. Medical Branch lisinopril Yes 10mg Take 10 mg U nivers (PRINIVIL,Z 9-11 by mouth ity of ESTRIL) 10 14:46: daily. [place] mg tablet 32 [facility] atorvastati Yes 10mg Take 10 mg Univers n (LIPITOR) 9-11 by mouth ity of 10 mg 14:46: at [place] tablet 32 bedtime. Medical Branch BIMATOPROST Yes 1[drp] Place 1 U nivers (LUMIGAN 9-11 Drop in ity of OPHTHALMIC) 14:12: each eye [place] 31 daily. [facility] BIMATOPROST 2014-0 Yes 1[drp] Place 1 U nivers (LUMIGAN 9-11 Drop in ity of OPHTHALMIC) 14:12: each eye [place] 31 daily. [facility] Procedures Procedure Date / Time Performed Performing Clinician [facility] e ASSIGNMENT OF BENEFITS 2020-04-18 15:46:58 Doctor Unassigned, No [facility] Encounters Start End Encounter Admission Attending Care Care Encounter Source Date/Time Date/Time Type Type Clinicians Facility Department ID 2020-04-18 2020-04-18 Outpatient R [facility] [id number] Univers 10:30:00 10:30:00 HARJIT hill [facility] 2020-04-18 2020-04-18 Casino Worker Derick, Ramesh Lab [facility] [id number] Univers 09:47:56 10:02:56 Visit Harjit Floyd [id number] ity [facility] [id number] [place] Profess[place] [id number] Nm dical [address] 2020-04-18 2020-04-18 Orders Doctor LUIS CARLOS [id number] Univers 00:00:00 00:00:00 Only Unassigned, ISAIAH [id number] [facility] [id number] Reza as [id number] [address] 2019-04-17 2019-04-17 Outpatient R PEGGY [facility] [id number] Univers 13:35:46 23:59:00 DAINA hill [facility] Results This patient has no known results.
--- NOTE | 2022-11-27 09:44 | RAD REPORT ---
EXAM DESCRIPTION: RAD - Foot Right 3 View - 11/27/2022 9:36 am CLINICAL HISTORY: PAIN COMPARISON: Knee Right 3 View dated 11/27/2022 FINDINGS: Small plantar calcaneal spur noted. Lucency is seen in the distal shaft of the fourth meta tarsal suspicious for nondisplaced fracture. Adjacent soft tissue swelling is present along the dorsu m of the forefoot.
--- NOTE | 2022-11-27 09:45 | RAD REPORT ---
EXAM DESCRIPTION: RAD - Knee Right 3 View - 11/27/2022 9:36 am CLINICAL HISTORY: PAIN COMPARISON: No comparisons FINDINGS: Mild medial compartment space narrowing is present. No fracture, dislocation or joint effu steven.
--- NOTE | 2022-11-27 09:55 | EDPHYS ---
Physician Documentation [facility] Name: Davie Jung Jr Age: 62 yrs Sex: Male : 1960 Arrival Date: 11/27/2022 Time: 08:16 Bed 4 Private MD: ED Physician Dionicio Chance HPI: 11/27 08:33 This 62 yrs old Male presents to ER via Unassigned with complaints of Fell rn thru Roof. 08:33 This 62 yrs old Male presents to ER via Unassigned with complaints of Fell rn thru ceiling. 08:33 The patient presents with an injury, pain. The complaints affect the right foot. Onset: rn The symptoms/episode began/occurred last night. Modifying factors: The symptoms are alleviated by nothing, the symptoms are aggravated by weight bearing. Severity of symptoms: At their worst the symptoms were mild, in the emergency department the symptoms are unchanged. The patient has not experienced similar symptoms in the past. The patient has not recently seen a physician. Pt reports trying to fix AC, fell through ceiling, landed on right foot, reports only pain to right foot and mild right knee pain. No LOC. No head/neck injury. No chest pain/sob/abd pain. . Historical: - Allergies: 08:36 No Known Allergies; ph - Home Meds: 08:36 atorvastatin Oral [Active]; bisoprolol-hydrochlorothiazide Oral [Active]; lisinopril ph Oral [Active]; pantoprazole Oral [Active]; - PMHx: 08:36 Hypercholesterolemia; Hypertensive disorder; ph - Immunization history:: Adult Immunizations unknown. - Social history:: Smoking status: Patient denies any tobacco usage or history of. - Family history:: not pertinent. - Hospitalizations: : No recent hospitalization is reported. ROS: 08:33 Constitutional: Negative for fever, chills, and weight loss, Eyes: Negative for injury, rn pain, redness, and discharge, Neck: Negative for injury, pain, and swelling, Cardiovascular: Negative for chest pain, palpitations, and edema, Respiratory: Negative for shortness of breath, cough, wheezing, and pleuritic chest pain, Abdomen/GI: Negative for abdominal pain, nausea, vomiting, diarrhea, and constipation, Back: Negative for injury and pain, MS/Extremity: + right knee and foot pain Skin: + abrasion right knee Neuro: Negative for headache, weakness, numbness, tingling, and seizure. Exam: 08:33 Constitutional: This is a well developed, well nourished patient who is awake, alert, rn and in no acute distress. Neck: No midline cervical tenderness Chest/axilla: Normal chest wall appearance and motion. Nontender with no deformity. No lesions are appreciated. Cardiovascular: Regular rate and rhythm. No pulse deficits. Respiratory: No increased work of breathing, no retractions or nasal flaring. Abdomen/GI: Soft, non-tender Back: No spinal tenderness. No costovertebral tenderness. Full range of motion. Skin: Warm, dry MS/ Extremity: Pulses equal, no cyanosis. Neurovascular intact. Full, normal range of motion. Equal circumference. + superficial abrasion anterior right knee. + medial right foot with swelling and ecchymosis, no open wound Neuro: Awake and alert, GCS 15, oriented to person, place, time, and situation. Cranial nerves II-XII grossly intact. Motor strength 5/5 in all extremities. Sensory grossly intact. Cerebellar exam normal. Vital Signs: 08:33 BP 145 / 69; Pulse 67; Resp 18; Temp 97.7; Pulse Ox 100% on R/A; Weight 88.9 kg; Height ph 5 ft. 8 in. ; 08:33 Body Mass Index 29.80 (88.90 kg, 172.72 cm) ph MDM: 08:26 Patient medically screened. rn 09:52 Differential diagnosis: fracture, sprain. Data reviewed: vital signs, nurses notes, rn radiologic studies, plain films, and as a result, I will discharge patient. Counseling: I had a detailed discussion with the patient and/or guardian regarding: the historical points, exam findings, and any diagnostic results supporting the discharge/admit diagnosis, radiology results, the need for outpatient follow up, to return to the emergency department if symptoms worsen or persist or if there are any questions or concerns that arise at home. Special discussion: I discussed with the patient/guardian in detail that at this point there is no indication for admission to the hospital. It is understood, however, that if the symptoms persist or worsen the patient needs to return immediately for re-evaluation. Based on the history and exam findings, there is no indication for further emergent testing or inpatient evaluation. I discussed with the patient/guardian the need to see the orthopedic surgeon for further evaluation of the symptoms. 11/27 08:32 Order name: XRAY Foot RIGHT 3 View; Complete Time: 09:46 rn 11/27 08:32 Order name: XRAY Knee RIGHT 3 view; Complete Time: 09:46 rn 11/27 09:46 Order name: Orthopedic shoe; Complete Time: 10:55 rn Administered Medications: No medications were administered Disposition Summary: 11/27/22 09:54 Discharge Ordered Location: Home rn Problem: new rn Symptoms: have improved rn Condition: Stable rn Diagnosis - Fracture of fourth metatarsal bone - Closed, acute, right foot rn Followup: rn - With: Nader Thompson MD - When: 5 - 6 days - Reason: Recheck today's complaints, Re-evaluation by your physician Discharge Instructions: - Discharge Summary Sheet rn - Metatarsal Fracture rn Forms: - Medication Reconciliation Form rn - Thank You Letter rn - Antibiotic furniture stainer - Prescription Opioid Use rn - Patient Portal Instructions rn - Work release form ph Prescriptions: - Tramadol 50 mg Oral Tablet - take 1 tablet by ORAL route every 8 hours as needed; 12 tablet; Refills: 0, rn Product Selection Permitted Signatures: Dispatcher [employer] Dionicio Ward MD MD rn Hall, Patricia, RN RN ph
--- NOTE | 2022-11-27 09:55 | ER ---
Nurse's Notes [facility] Name: Davie Jung Jr Age: 62 yrs Sex: Male : 1960 Arrival Date: 11/27/2022 Time: 08:16 Bed 4 Private MD: Diagnosis: Fracture of fourth metatarsal bone-Closed, acute, right foot Presentation: 11/27 08:33 Chief complaint: Patient states: Was in attic working on A/C when he fell through the ceiling, reports falling approx 10 feet, c/o pain to R knee and R foot, denies head injury, back pain, or LOC, happened last night. Coronavirus screen: Vaccine status: Patient reports receiving the 2nd dose of the covid vaccine. Ebola Screen: No symptoms or risks identified at this time. Initial Sepsis Screen: Does the patient meet any 2 criteria? No. Patient's initial sepsis screen is negative. Does the patient have a suspected source of infection? No. Patient's initial sepsis screen is negative. Risk Assessment: Do you want to hurt yourself or someone else? Patient reports no desire to harm self or others. Onset of symptoms was November 27, 2022. 08:33 Method Of Arrival: Wheelchair 08:33 Acuity: ELENA 3 ph Triage Assessment: 08:38 General: Appears in no apparent distress. comfortable, well groomed, Behavior is calm, ph cooperative, appropriate for age. Pain: Complains of pain in right knee and dorsum of right foot. Neuro: [place] Agitation-Sedation Scale (RASS): 0 - Alert and Calm Level of Consciousness is awake, alert, obeys commands, Oriented to person, place, time, situation. Cardiovascular: Capillary refill < 3 seconds in bilateral fingers toes. Respiratory: Airway is patent Respiratory effort is even, unlabored, Denies cough, pain with respiration. Derm: Skin is pink, warm \T\ dry. Musculoskeletal: Circulation, motion, and sensation intact. Swelling present in dorsum of right foot. Injury Description: Abrasion sustained to right knee. Historical: - Allergies: 08:36 No Known Allergies; ph - Home Meds: 08:36 atorvastatin Oral [Active]; bisoprolol-hydrochlorothiazide Oral [Active]; lisinopril ph Oral [Active]; pantoprazole Oral [Active]; - PMHx: 08:36 Hypercholesterolemia; Hypertensive disorder; ph - Immunization history:: Adult Immunizations unknown. - Social history:: Smoking status: Patient denies any tobacco usage or history of. - Family history:: not pertinent. - Hospitalizations: : No recent hospitalization is reported. Screenin:40 [facility] ED Fall Risk Assessment (Adult) History of falling in the last 3 months, ph including since admission Yes- single mechanical fall (1 pt) Confusion or Disorientation No (0 pts) Intoxicated or Sedated No (0 pts) Impaired Gait No (0 pts) Mobility Assist Device Used No (0 pt) Altered Elimination No (0 pt) Score/Fall Risk Level 0 - 2 = Low Risk Oriented to surroundings, Maintained a safe environment, Hourly rounding (assess needs \T\ fall precautionary measures) done. Abuse screen: Denies threats or abuse. Denies injuries from another. Nutritional screening: No deficits noted. Tuberculosis screening: No symptoms or risk factors identified. Assessment: 08:39 General: SEE TRIAGE ASSESSMENT. ph Vital Signs: 08:33 BP 145 / 69; Pulse 67; Resp 18; Temp 97.7; Pulse Ox 100% on R/A; Weight 88.9 kg; Height ph 5 ft. 8 in. ; 08:33 Body Mass Index 29.80 (88.90 kg, 172.72 cm) ph ED Course: 08:20 Patient arrived in ED. mr 08:25 Diana Fuentes RN is Primary Nurse. ph 08:26 Dionicio Chance MD is Attending Physician. rn 08:36 Triage completed. ph 08:38 Arm band placed on Patient placed in an exam room, on a stretcher, on pulse oximetry. ph 08:40 Patient has correct armband on for positive identification. Bed in low position. Call ph light in reach. Side rails up X2. Pulse ox on. NIBP on. 09:38 XRAY Foot RIGHT 3 View In Process Unspecified. EDMS 09:38 XRAY Knee RIGHT 3 view In Process Unspecified. EDMS 09:54 Nader Thompson MD is Referral Physician. rn Administered Medications: No medications were administered Outcome: 09:54 Discharge ordered by . rn 11:04 Patient left the ED. ph Signatures: Dispatcher [employer] Susi Bello mr Chance, Dionicio, MD MD rn Fuentes, Diana, RN RN ph
[2022-11-27 11:10] VITALS: BP 145/69; TEMP 97.7; O2SAT 100
== END 2022-11-27 11:04 | disposition home or self-care (01) ==
LOC: ER 08:16
DX: S92.341A Displaced fracture of fourth metatarsal bone, right foot, initial encounter for closed fracture (principal)